=== PATIENT | female | born 1995 | race African-American/Black ===

== ENCOUNTER 2017-04-07 06:13 | Inpatient (IN) ==
[2017-04-07] MEDS ORDERED: PEPCID PO PRN (06:17)
[2017-04-07] MEDS ORDERED: TYLENOL PO PRN (06:17)
[2017-04-07] MEDS ORDERED: STADOL IV PRN (06:17)
[2017-04-07] MEDS ORDERED: PEPCID PO ONE (06:17)
[2017-04-07] MEDS ORDERED: ZOFRAN IV PRN (06:17)
[2017-04-07] MEDS ORDERED: PEPCID IV PRN (06:17)
[2017-04-07] MEDS ORDERED: REGLAN PO ONE (06:17)
[2017-04-07] MEDS ORDERED: KEFZOL 1 GM/D5W 1 GM/50 ML IVPB IV PRN (06:17)
[2017-04-07] MEDS ORDERED: SODIUM CHLORIDE 0.9% INJ SCH (06:30)
[2017-04-07] MEDS ORDERED: PITOCIN 30 UNITS/LR 30 UNITS/500 ML IV.SOLN IV SCH (07:00)
[2017-04-07] MEDS: LR 1,000 ML IV SCH ×3 (07:10→11:56)
[2017-04-07 07:35] LABS: URINE SOURCE VOIDED
[2017-04-07 07:35] LABS: MANUAL DIFF NEEDED? NO
[2017-04-07 07:39] LABS: BASO% 0.2 % (0.0-0.8); EOS# 0.12 X1000 (0.0-0.7); HEMATOCRIT 35.4 % (37.0-47.0); HEMOGLOBIN 12.3 g/dL (12.0-16.0); IMM GRAN# 0.19 X1000 (0.0-0.04); IMM GRAN% 1.6 % (0.0-0.5); LYMPH# 2.78 X1000 (1.2-3.4); LYMPH% 22.7 % (20.5-51.1); MCH 31.5 PG (27-31); MCHC 34.7 g/dL (33-37); MCV 90.8 FL (81-99); MONO# 1.37 X1000 (0.11-0.59); MONO% 11.2 % (1.7-9.3); MPV 10.9 FL (7.4-10.4); NEUT% 63.3 % (42.2-75.2); PLT 182 X1000 (130-400)
[2017-04-07 07:44] LABS: BILIRUBIN URINE NEGATIVE (NEGATIVE); BLOOD URINE TRACE (NEGATIVE); CLARITY CLEAR (CLEAR); COLOR YELLOW; GLUCOSE URINE NEGATIVE (NEGATIVE); LEUKOCYTES URINE 1+ (NEGATIVE); NITRITE URINE NEGATIVE (NEGATIVE); PH URINE 6.5; PROTEIN URINE NEGATIVE (NEGATIVE); SP GRAVITY URINE 1.015; UR AMPHETAMINES QUAL NONE DETECTED (NONE DETECT); UR BARBITUATES QUAL NONE DETECTED (NONE DETECT); UR BENZODIAZEPIN QUAL NONE DETECTED (NONE DETECT); UR CANNABINOIDS QUAL NONE DETECTED (NONE DETECT); UR COCAINE QUAL NONE DETECTED (NONE DETECT); UR MDMA QUAL NONE DETECTED (NONE DETECT); UR METHADONE QUAL NONE DETECTED (NONE DETECT); UR METHAMPHETAMINE QUAL NONE DETECTED (NONE DETECT); UR OPIATES QUAL NONE DETECTED (NONE DETECT); UR OXYCODONE QUAL NONE DETECTED (NONE DETECT); UR PCP QUAL NONE DETECTED (NONE DETECT); UR TCA QUAL NONE DETECTED (NONE DETECT); UROBILINOGEN URINE NORMAL
[2017-04-07] MEDS ORDERED: FENTANYL-BUPIV-NS 2 MCG-0.1% 200 ML EPIDURAL PRN (08:26)
[2017-04-07] MEDS ORDERED: XYLOCAINE-MPF 1% INJ ONE (11:51)
[2017-04-07] MEDS ORDERED: MINERAL OIL PO ONE (11:52)
[2017-04-07] MEDS ORDERED: BOOSTRIX VACCINE IM ONE (13:26)
[2017-04-07] MEDS ORDERED: AMBIEN PO PRN (13:26)
[2017-04-07] MEDS ORDERED: M-M-R II VACCINE SUBQ ONE (13:26)
[2017-04-07] MEDS ORDERED: PITOCIN 30 UNITS/LR 30 UNITS/500 ML IV.SOLN IV ONE (13:26)
[2017-04-07] MEDS ORDERED: XYLOCAINE-MPF 1% INJ PRN (13:26)
[2017-04-07] MEDS ORDERED: MINERAL OIL PO PRN (13:26)
[2017-04-07] MEDS ORDERED: PERI MEDS (DERMOPLAST/NUPERCAINAL/TUCKS) MISC PRN (13:26)
[2017-04-07] MEDS ORDERED: PERCOCET-10 PO PRN (13:26)
[2017-04-07] MEDS ORDERED: PITOCIN 20 UNITS/LR 20 UNITS/1,000 ML IV.SOLN IV SCH (13:26)
[2017-04-07] MEDS ORDERED: HYDROXYZINE PO PRN (13:26)
[2017-04-07] MEDS ORDERED: PERCOCET-5 PO PRN (13:26)
[2017-04-07] MEDS ORDERED: CYTOTEC PO PRN (13:26)
[2017-04-07] MEDS ORDERED: BENADRYL PO PRN (13:26)
[2017-04-07] MEDS ORDERED: BENADRYL IV PRN (13:26)
[2017-04-07] MEDS ORDERED: PITOCIN IM PRN (13:26)
[2017-04-07] MEDS ORDERED: HYDROXYZINE IM PRN (13:26)
--- NOTE | 2017-04-07 17:06 | OPERATIVE NOTE ---
PROCEDURE DATE: 04/07/2017 DELIVERING PHYSICIAN: Eron Wilson MD TYPE OF DELIVERY: Spontaneous controlled vaginal delivery. ANESTHESIA: Epidural. FINDINGS: At 12:55, a 6 pound 4 ounce male infant was delivered in occipitoanterior presentation. scores were 9 at one minute and 10 at five minute. DELIVERY SUMMARY: Kimberley Hart is a 21-year-old, 2, para 1-0-0-1, at 39-1/2 weeks gestation. Her blood type is AB-positive, rubella immune. Hepatitis B surface antigen, HIV, and group B strep were negative. Ms. Hart was brought into labor and delivery this morning for elective induction of labor. She was 3 cm upon admission. She was admitted. Membranes were ruptured, revealing clear fluid. IV Pitocin was begun and she received an epidural for labor pain management. Ms. Hart progressed through labor without signs of distress or dystocia. She became complete and began pushing. She rapidly crowned. At that point, she was placed in dorsal lithotomy position. The perineum was prepped and draped in the usual fashion. A spontaneous controlled vaginal delivery occurred. Once the infant's head was delivered, the nuchal cord was reduced. The shoulders and body delivered without complications. The oropharynx was bulb suctioned. The cord was clamped and cut. The infant was handed to the nurses for further care and evaluation. Cord blood was obtained. The placenta was spontaneously delivered and was intact. There were no cervical or vaginal lacerations and blood loss was estimated at 150 mL. cc: Eron Wilson MD
[2017-04-07] MEDS: NORCO-10 PO PRN (23:21)
[2017-04-07] MEDS: MOTRIN PO PRN (23:21)
[2017-04-07] MEDS: PERICOLACE PO SCH (23:22)
[2017-04-08 05:32] LABS: HEMATOCRIT 34.3 % (37.0-47.0); HEMOGLOBIN 11.5 g/dL (12.0-16.0); MCH 30.8 PG (27-31); MCHC 33.5 g/dL (33-37); MPV 11.2 FL (7.4-10.4); RBC 3.73 XMIL (4.2-5.4)
[2017-04-08] MEDS: PRECARE PO SCH (08:18)
[2017-04-08] MEDS: MOTRIN PO PRN ×2 (08:30→18:34)
[2017-04-08] MEDS: PERICOLACE PO SCH (21:19)
[2017-04-09] MEDS: NORCO-10 PO PRN (00:15)
[2017-04-09 08:14] VITALS: BP 105/77
[2017-04-09] MEDS: PRECARE PO SCH (08:58)
== END 2017-04-09 11:50 | disposition home or self-care (01) ==
LOC: P.LD 06:13 → P.WC 14:54
PROVIDERS: ADMIT Obstetrics & Gynecology; ATTEND Obstetrics & Gynecology